=== PATIENT | male | born 1975 | race Hispanic/Latino ===

== ENCOUNTER 2018-06-28 21:28 | Emergency (ER) | payer OTHER ==
[2018-06-28] MEDS ORDERED: DEXAMETHASONE SOD PHOSPHATE 4 MG/ML 1ML VIAL ONE (22:01)
[2018-06-28] MEDS ORDERED: ACETAMINOPHEN-CODEINE ELIXIR 5 ML UDCUP ONE (22:02)
[2018-06-28] MEDS ORDERED: IBUPROFEN 600 MG TABLET ONE (22:04)
[2018-06-28] MEDS ORDERED: ACETAMINOPHEN 325 MG TAB ONE (22:04)
[2018-06-28 22:11] LABS: BASOPHILS % (AUTO) 0.3 % (0.0-5.0); HEMATOCRIT 39.6 % (42-54); LYMPHOCYTES % (AUTO) 25.1 % (21.0-51.0); MEAN CORPUSCULAR HEMOGLOBIN 28.9 pg (27.0-33.0); MEAN CORPUSCULAR HGB CONC 34.7 g/dL (32.0-36.0); MEAN CORPUSCULAR VOLUME 83.3 fL (79-99); NEUTROPHILS % (AUTO) 69.6 % (40.0-77.0); PLATELET COUNT (AUTO) 164 K/uL (130-400); RED BLOOD CELL COUNT(AUTO) 4.75 MIL/uL (4.50-6.20); RED CELL DISTRIBUTION WIDTH 13.8 % (11.0-15.5); WHITE BLOOD COUNT (AUTO) 4.3 K/uL (4.8-10.8)
[2018-06-28 22:24] LABS: RAPID GROUP A STREP NEGATIVE (NEGATIVE)
== END 2018-06-28 22:45 | disposition home or self-care (01) ==
LOC: EDH 21:28
DX: B34.9 Viral infection, unspecified (principal); T78.40XA Allergy, unspecified, initial encounter; R53.83 Other fatigue; X58.XXXA Exposure to other specified factors, initial encounter
CPT/HCPCS: 36415; 85025; 87804 ×2; 87880; 96372; 99284; J1100